=== PATIENT | female | born 1970 ===

== ENCOUNTER 2017-05-05 19:27 | Emergency (ER) | payer SELFPAY ==
[2017-05-05 19:53] VITALS: RESP 18; TEMP 98.4
[2017-05-05] MEDS ORDERED: Sodium Chloride 0.9% 1,000 ML IV STA (20:27)
[2017-05-05] MEDS ORDERED: DiphenhydrAMINE 50 mg/ml Inj IVP STA (20:30)
[2017-05-05 22:35] VITALS: BP 133/76; PULSE 75
--- NOTE | 2017-05-05 22:38 | CT ---
EXAM: CT Head Without Intravenous Contrast CLINICAL HISTORY: 47 years old, female; Pain; Headache; Additional info: YEAGER x2 weeks TECHNIQUE: Axial computed tomography images of the head/brain without intravenous contrast. All CT scans at this facility use one or more dose reduction techniques, viz.: automated exposure control; ma/kV adjustment per patient size (including targeted exams where dose is matched to indication; i.e. head); or iterative reconstruction technique. COMPARISON: No relevant prior studies available. FINDINGS: Brain: No intracranial hemorrhage. No mass. No definite edema. Ventricles: No hydrocephalus. Bones/joints: No acute fracture. Soft tissues: Unremarkable. Sinuses: Minimal opacification of RIGHT ethmoid sinus. Mastoid air cells: No mastoid effusion. Orbits: Unremarkable as visualized. IMPRESSION: 1. No acute intracranial abnormality. 2. Incidental/non-acute findings are described above.
--- NOTE | 2017-05-05 22:50 | ED PDOC ---
Arrival/HPI - General Chief Complaint: Headache Time Seen by Provider: 05/05/17 20:27 - History of Present Illness Narrative History of Present Illness (Text): 05/05/17 22:50 47yo female with 5 days on/off headache, frontal. Pt states this is not the worst YEAGER of her life, states this YEAGER was slow in onset. Denies n/v, denies photophobia, no neck or back pain. no fevers or chills. No other complaints. Past Medical History - Provider Review Nursing Documentation Reviewed: Yes - Hematological/Oncological Hx Cancer: Yes - Psychiatric Hx Substance Use: No Family/Social History Family/Social History: Unknown Family HX Smoking Status: no Hx Alcohol Use: No Hx Substance Use: No Allergies/Home Meds Allergies/Adverse Reactions: Allergies No Known Allergies Allergy (Verified 05/05/17 19:53) Physical Exam - Physical Exam Narrative Physical Exam (Text): - Review of Systems Constitutional: Normal. absent: Fatigue, Weight Change, Fevers Eyes: Normal ENT: denies sore throat, denies tristhmus Respiratory: Normal. absent: SOB, Cough, Sputum Cardiovascular: absent: Chest Pain, Palpitations, Syncope, near-syncope Gastrointestinal: Normal. absent: Abdominal Pain, Diarrhea, Nausea, Vomiting Genitourinary: Normal. absent: Dysuria, Frequency, Hematuria, vaginal bleeding Musculoskeletal: Normal. absent: Arthralgias, Back Pain, Neck Pain Skin: no rashes, no erythema Neurological: Headache. absent: Focal Weakness, dizziness, lightheadedness Endocrine: Normal Hemo/Lymphatic: Normal Psychiatric: No suicidal or homicidal ideations Physical exam Patient appears age appropriate in no distress, speaking full sentences without difficulty - Systems Exam Head: Present: Atraumatic, Normocephalic Pupils: Present: PERRL Extroacular Muscles: Present: EOMI Conjunctiva: Present: Normal Mouth: Present: Moist Mucous Membranes Neck: Present: Normal Range of Motion. No: MIDLINE TENDERNESS, Paraspinal Tenderness Respiratory/Chest: Present: Clear to Auscultation, Good Air Exchange. No: Respiratory Distress, Accessory Muscle Use, Tachypneic Cardiovascular: Present: Regular Rate and Rhythm, Normal S1, S2, Peripheal Pulses Present. No: Murmurs Abdomen: Present: Normal Bowel Sounds. No: Tenderness, Distention, Peritoneal Signs, Rebound, Guarding Back: Present: Normal Inspection. No: Midline Tenderness, Paraspinal Tenderness Upper Extremity: Present: Normal Inspection. No: Cyanosis, Edema Lower Extremity: Present: Normal Inspection. No: Edema Neurological: Present: GCS=15, Speech Normal, cranial nerves II through XII fully intact with no cerebellar abnormality, neurosensory fully intact. No focal neurological deficits. Skin: Present: Warm, Dry, Normal Color. No: Rashes Lymphatic: Present: OX3, NI, NC Psychiatric: Present: Alert, Oriented x 3, Normal Insight, Normal Concentration Vital Signs Reviewed: Yes Vital Signs Temp Pulse Resp BP Pulse Ox 05/05/17 22:35 75 18 133/76 100 05/05/17 19:49 98.4 F 84 18 137/85 98 Temperature: Afebrile Blood Pressure: Normal Pulse: Regular Respiratory Rate: Normal Appearance: Positive for: Well-Appearing Pain Distress: None Mental Status: Positive for: Alert and Oriented X 3 Medical Decision Making ED Course and Treatment: 47yo female with a headache. Not sudden onset and not the worst YEAEGR of her life. Not posterior, no n/v, no photophobia. No focal neurological deficits on examination. pt states she took 200mg of motrin with no relief. CT Head IMPRESSION: 1. No acute intracranial abnormality. 2. Incidental/non-acute findings are described above. Dictated By: Fransisco Lockhart MD Dictated Date/Time: 05/05/172237 After medication administration, pt states her symptoms fully resolved ambulates with steady gait without difficulty no focal neurological deficits on reevaluation states she feels comfortable being dc'd home with outpatient f/u Pt states she understands to return to the ER right away for new or worsening symptoms or for inability to f/u with PMD or specialist as instructed. Patient states that she fully agrees with and understands discharge instructions. States that she agrees with the plan and disposition. Verbalized and repeated discharge instructions and plan. I have given the patient opportunity to ask any additional questions. Encounter translated with the help of Khushi MAGDALENO without difficulty - RAD Interpretation Radiology Orders: 05/05/17 20:58 HEAD W/O CONTRAST [CT] Stat - Medication Orders Current Medication Orders: Discontinued Medications Acetaminophen (Tylenol 325mg Tab) 975 mg PO STAT STA Stop: 05/05/17 20:28 Last Admin: 05/05/17 20:55 Dose: 975 mg Diphenhydramine HCl (Benadryl) 50 mg IVP STAT STA Stop: 05/05/17 20:31 Last Admin: 05/05/17 20:55 Dose: 50 mg Sodium Chloride (Sodium Chloride 0.9%) 1,000 mls @ 1,000 mls/hr IV .Q1H STA Stop: 05/05/17 21:26 Last Admin: 05/05/17 20:55 Dose: 1,000 mls/hr Ketorolac Tromethamine (Toradol) 30 mg IVP STAT STA Stop: 05/05/17 20:28 Last Admin: 05/05/17 20:55 Dose: 30 mg Metoclopramide HCl (Reglan) 10 mg IVP STAT STA Stop: 05/05/17 20:31 Last Admin: 05/05/17 20:55 Dose: 10 mg Disposition/Present on Arrival - Present on Arrival Any Indicators Present on Arrival: No History of DVT/PE: No History of Uncontrolled Diabetes: No Urinary Catheter: No History of Decub. Ulcer: No History Surgical Site Infection Following: None - Disposition Have Diagnosis and Disposition been Completed?: Yes Diagnosis: Headache Disposition: HOME/ ROUTINE Disposition Time: 22:48 Patient Plan: Discharge Condition: GOOD Discharge Instructions (ExitCare): General Headache (ED) Additional Instructions: PLEASE RETURN TO THE EMERGENCY DEPARTMENT FOR NEW OR WORSENING SYMPTOMS. RETURN RIGHT AWAY IF YOU CANNOT FOLLOW UP WITH YOUR PRIMARY CARE DOCTOR, CLINIC, OR SPECIALIST IN 1-2 DAYS. Prescriptions: Acetaminophen [Tylenol Extra Strength] 500 mg PO Q6 PRN #15 tablet PRN Reason: Pain, Moderate (4-7) Ibuprofen [Motrin] 600 mg PO Q8 PRN #12 tab PRN Reason: Pain, Moderate (4-7) Referrals: PCP,NO [Primary Care Provider] - Follow up with primary Gian Flores MD [Staff Provider] - Follow up with primary Deep Nunn MD [Staff Provider] - Follow up with primary [facility] [place] [Outside] - Follow up with primary [facility] [Outside] - Follow up with primary Forms: [employer] (Spanish)
[2017-05-05 22:53] VITALS: O2SAT 98
== END 2017-05-05 22:53 | disposition home or self-care (01) ==
LOC: ED 19:27
DX: R51 Headache (principal)
CPT/HCPCS: 70450; 96374; 96375; 99285; J1200; J1885; J2765; J7040

== ENCOUNTER 2018-07-28 07:16 | Day surgery (SDC) | payer MEDICAID ==
[2018-07-20 13:50] VITALS: BMI 31.7
[2018-07-28] MEDS ORDERED: Propofol 10 mg/ml Inj (20 ML) ONE (08:34)
[2018-07-28] MEDS ORDERED: Sodium Chloride 0.9% 1,000 ML IV SCH (09:15)
[2018-07-28 09:34] VITALS: RESP 16
[2018-07-28 09:44] VITALS: BP 130/77; TEMP 97.7
[2018-07-28 10:23] VITALS: PULSE 72; O2SAT 99
== END 2018-07-28 10:35 | disposition home or self-care (01) ==
LOC: ENDO 07:16
PROVIDERS: ATTEND Internal Medicine Gastroenterology
DX: Z12.11 Encounter for screening for malignant neoplasm of colon (principal); D12.3 Benign neoplasm of transverse colon; K64.1 Second degree hemorrhoids
CPT/HCPCS: 45385; 84703; 88305; J2001; J2704; J7030; J7040